=== PATIENT | female | born 1970 | race Caucasian/White ===

== ENCOUNTER 2017-08-16 21:41 | Emergency (ER) | payer BC ==
[~2017-08-16] VITALS: Ht 162.6 cm; Wt 84.2 kg
[2017-08-16 22:51] LABS: MCH 24.8 PG (29.0-34.0); MCHC 30.6 G/DL (30.0-36.0); MEAN PLAT.VOLUME 9.5 uM^3 (9.5-12.4); PLATELET COUNT 344 K/uL (156-360); RBC DIS.WIDTH-CV 16.6 % (11.8-14.6); RBC DIS.WIDTH-SD 48.7 % (39-53); WHITE BLOOD COUNT 8.4 K/uL (4.1-10.2)
[2017-08-16 23:02] LABS: CHLORIDE 110 mEq/L (99-109); POTASSIUM 3.5 mEq/L (3.7-5.4); SODIUM 141 mEq/L (136-147)
[2017-08-16 23:04] LABS: GLUCOSE 107 mg/dL (70-99)
[2017-08-16 23:05] LABS: ANION GAP 11 MEQ/L (2-14)
[2017-08-16 23:08] LABS: GFR ESTIMATE (CALCULATED) > 59 mL/min/
[2017-08-16 23:09] LABS: UREA NITROGEN (BUN) 9 mg/dL (9-23)
[2017-08-16 23:16] LABS: QUANTITATIVE HCG < 4.0 MIU/ML
[2017-08-16] MEDS ORDERED: KEPPRA500 MG PO (23:59)
[2017-08-17] VITALS: BP 147/102
== END 2017-08-16 23:58 | disposition home or self-care (01) ==
LOC: EME 21:41 → EDBD 21:41 → EME 23:58
PROVIDERS: Emergency Medicine
DX: G40.909 Epilepsy, unspecified, not intractable, without status epilepticus (principal); Z91.14 Patient's other noncompliance with medication regimen
CPT/HCPCS: 71010; 80048; 81003; 83605; 84702; 85027; 87040; 87086; 93005; 99281; 99284; J1885; J1953; J2060; J2250; J7050; J7120

== ENCOUNTER 2017-12-22 14:13 | Emergency (ER) | payer BC ==
[~2017-12-22] VITALS: Ht 162.6 cm; Wt 72.4 kg
[~2017-12-22 14:13] MED LIST: KEPPRA500 MG PO
[2017-12-22 14:53] LABS: CHLORIDE 106 mEq/L (99-109); POTASSIUM 3.9 mEq/L (3.7-5.4); SODIUM 141 mEq/L (136-147)
[2017-12-22 14:55] LABS: GLUCOSE 103 mg/dL (70-99)
[2017-12-22 14:59] LABS: CREATININE 0.7 mg/dL (0.6-1.3); GFR ESTIMATE (CALCULATED) > 59 mL/min/; UREA NITROGEN (BUN) 13 mg/dL (9-23)
[2017-12-22 16:55] VITALS: BP 144/88
== END 2017-12-22 17:14 | disposition home or self-care (01) ==
LOC: EME 14:13
PROVIDERS: Emergency Medicine
DX: G43.109 Migraine with aura, not intractable, without status migrainosus (principal); G40.909 Epilepsy, unspecified, not intractable, without status epilepticus; M79.7 Fibromyalgia; F32.9 Major depressive disorder, single episode, unspecified; G89.29 Other chronic pain; G54.9 Nerve root and plexus disorder, unspecified; G54.2 Cervical root disorders, not elsewhere classified; F17.200 Nicotine dependence, unspecified, uncomplicated
CPT/HCPCS: 80048; 80175 90; 99281; 99284; J1200; J2765; J7030

== ENCOUNTER 2018-01-16 22:37 | Emergency (ER) | payer BC ==
[~2018-01-16] VITALS: Ht 162.6 cm; Wt 76.4 kg
[2018-01-16 23:08] VITALS: BP 180/112
== END 2018-01-17 01:43 | disposition left against medical advice (07) ==
LOC: EME 22:37
DX: R51 Headache (principal); F17.200 Nicotine dependence, unspecified, uncomplicated
CPT/HCPCS: 70450; 81003

== ENCOUNTER 2018-02-01 20:38 | Observation (INO) | payer BC ==
[~2018-02-01] VITALS: Ht 162.6 cm; Wt 74.5 kg
[2018-02-01 21:40] LABS: BASOPHIL (%) 1.4 % (0-1); BASOPHIL COUNT 0.1 K/uL (0-0.1); EOSINOPHIL (%) 3.7 % (0-5); EOSINOPHIL COUNT 0.4 K/uL (0-0.3); HEMATOCRIT 32.1 % (36.0-46.0); IMMATURE GRANULOCYTE (%) 0.4 % (0.0-0.7); LYMPHOCYTE (%) 40.6 % (15-42); LYMPHOCYTE COUNT 4.2 K/uL (1.0-2.8); MCH 24.5 PG (29.0-34.0); MCHC 31.2 G/DL (30.0-36.0); MCV 78.7 FL (83-99); MONOCYTE (%) 6.5 % (3-12); MONOCYTE COUNT 0.7 K/uL (0-0.8); NEUTROPHIL (%) 47.4 % (45-76); NEUTROPHIL COUNT 4.9 K/uL (1.8-6.4); PLATELET COUNT 437 K/uL (156-360); RBC DIS.WIDTH-CV 14.4 % (11.8-14.6); RBC DIS.WIDTH-SD 41.5 % (39-53); RED BLOOD COUNT 4.08 M/uL (3.80-5.20); WHITE BLOOD COUNT 10.3 K/uL (4.1-10.2)
[2018-02-01 21:48] LABS: CHLORIDE 109 mEq/L (99-109); POTASSIUM 3.8 mEq/L (3.7-5.4); SODIUM 141 mEq/L (136-147)
[2018-02-01 21:50] LABS: GLUCOSE 107 mg/dL (70-99); TOTAL PROTEIN 6.3 g/dL (6.4-8.3)
[2018-02-01 21:52] LABS: TOTAL BILIRUBIN 0.1 mg/dL (0.0-1.0)
[2018-02-01 21:53] LABS: SERUM ETHYL ALCOHOL < 10 mg/dL
[2018-02-01 21:54] LABS: ALKALINE PHOSPHATASE 84 IU/L (3-129); CREATININE 0.7 mg/dL (0.6-1.3); GFR ESTIMATE (CALCULATED) > 59 mL/min/
[2018-02-01 21:55] LABS: AST (GOT) 22 IU/L (2-34); UREA NITROGEN (BUN) 10 mg/dL (9-23)
[2018-02-01 21:57] LABS: ALT (GPT) 22 IU/L (3-49); CREATINE KINASE 81 IU/L (1-294); TOTAL CK 81 IU/L (1-294)
[2018-02-01 22:03] LABS: CK-MB 0.9 ng/mL (0.0-4.9); CKMB RELATIVE INDEX 1.1 (0.0-3.9)
[2018-02-01] MEDS ORDERED: TRAMADOL HCL50 MG PO (23:36)
[2018-02-01] MEDS ORDERED: LAMOTRIGINE100 MG PO (23:36)
[2018-02-01] MEDS ORDERED: LAMICTAL100 MG PO (23:38)
[2018-02-01] MEDS ORDERED: PROAIR HFA8.5 GM IH (23:40)
[2018-02-01] MEDS ORDERED: ZYRTEC10 M3 PO (23:40)
[2018-02-01] MEDS ORDERED: ONE DAILY MULT1 EAC1 PO (23:40)
[2018-02-01] MEDS ORDERED: TIZANIDINE HCL4 MG PO (23:41)
[2018-02-01] MEDS ORDERED: VENLAFAXINE H37.5 M3 PO (23:42)
[2018-02-01] MEDS ORDERED: VENLAFAXINE HCL75 M3 PO (23:42)
[2018-02-01] MEDS ORDERED: DESYREL100 MG PO (23:43)
[2018-02-01] MEDS ORDERED: LEVETIRACETAM500 MG PO (23:43)
[2018-02-02 08:39] VITALS: BP 130/62
== END 2018-02-02 11:00 | disposition home or self-care (01) ==
LOC: EME → EDBD 20:38 → EME 20:38 → 4SOUTH 02-02 01:13 → EDOF 02-02 01:13 → ENRESERV 02-02 01:14 → 4SOUTH 02-02 02:11
PROVIDERS: Emergency Medicine
DX: G40.909 Epilepsy, unspecified, not intractable, without status epilepticus (principal); G43.909 Migraine, unspecified, not intractable, without status migrainosus; F31.81 Bipolar II disorder; G89.29 Other chronic pain; M54.2 Cervicalgia; Z82.49 Family history of ischemic heart disease and other diseases of the circulatory system; Z80.0 Family history of malignant neoplasm of digestive organs; F17.200 Nicotine dependence, unspecified, uncomplicated; Z88.6 Allergy status to analgesic agent; Z88.8 Allergy status to other drugs, medicaments and biological substances
CPT/HCPCS: 70450; 80053; 82550; 82553; 85025; 93005; 99202; 99281; 99285; G0378; G0480; J1630; J1644; J1953; J2250; J7030; J7050

== ENCOUNTER 2018-03-04 02:05 | Inpatient (IN) | payer BC ==
[~2018-03-04] VITALS: Ht 162.6 cm; Wt 72.5 kg
[~2018-03-04 02:05] MED LIST changes: +DESYREL100 MG PO; +LAMICTAL100 MG PO; +LAMOTRIGINE100 MG PO; +LEVETIRACETAM500 MG PO; +ONE DAILY MULT1 EAC1 PO; +PROAIR HFA8.5 GM IH; +TIZANIDINE HCL4 MG PO; +TRAMADOL HCL50 MG PO; +VENLAFAXINE H37.5 M3 PO; +VENLAFAXINE HCL75 M3 PO; +ZYRTEC10 M3 PO
[2018-03-04 02:30] LABS: HEMATOCRIT 30.7 % (36.0-46.0); HEMOGLOBIN 9.5 G/DL (11.9-15.5); MCH 23.8 PG (29.0-34.0); MCHC 30.9 G/DL (30.0-36.0); MCV 76.8 FL (83-99); PLATELET COUNT 335 K/uL (156-360); RBC DIS.WIDTH-CV 14.6 % (11.8-14.6); RBC DIS.WIDTH-SD 40.2 % (39-53); WHITE BLOOD COUNT 9.8 K/uL (4.1-10.2)
[2018-03-04 02:39] LABS: ALBUMIN 3.8 g/dL (3.2-4.8); CHLORIDE 107 mEq/L (99-109); POTASSIUM 3.8 mEq/L (3.7-5.4); SODIUM 137 mEq/L (136-147)
[2018-03-04 02:42] LABS: GLUCOSE 145 mg/dL (70-99)
[2018-03-04 02:43] LABS: TOTAL BILIRUBIN 0.1 mg/dL (0.0-1.0)
[2018-03-04 02:44] LABS: SERUM ETHYL ALCOHOL < 10 mg/dL
[2018-03-04 02:45] LABS: ALKALINE PHOSPHATASE 86 IU/L (3-129); CREATININE 0.7 mg/dL (0.6-1.3); GFR ESTIMATE (CALCULATED) > 59 mL/min/
[2018-03-04 02:46] LABS: UREA NITROGEN (BUN) 8 mg/dL (9-23)
[2018-03-04 02:47] LABS: AST (GOT) 15 IU/L (2-34)
[2018-03-04 02:48] LABS: ALT (GPT) 15 IU/L (3-49)
[2018-03-04 02:49] LABS: CREATINE KINASE 64 IU/L (1-294); LIPASE 31 U/L (1.0-51.0); TOTAL CK 64 IU/L (1-294)
[2018-03-04 02:57] LABS: CK-MB 0.9 ng/mL (0.0-4.9); CKMB RELATIVE INDEX 1.4 (0.0-3.9)
[2018-03-04 03:52] LABS: APPEARANCE CLEAR ((CLEAR)); BILIRUBIN NEGATIVE; BLOOD NEGATIVE; COLOR YELLOW ((YELLOW)); GLUCOSE (STRIP) NEGATIVE; KETONES NEGATIVE; LEUKOCYTES NEGATIVE; NITRITE NEGATIVE; PROTEIN (STRIP) NEGATIVE; SPECIFIC GRAVITY 1.009 (1.000-1.030); UCUL ADDED? NO; UROBILINOGEN 0.2 MG/DL (0.2-1.0)
[2018-03-04 04:04] LABS: AMPHETAMINE NEGATIVE (500 ng/mL); BARBITURATES NEGATIVE (200 ng/mL); BENZODIAZEPINES NEGATIVE (150 ng/mL); BUPRENORPHINE NEGATIVE (10 ng/mL); COCAINE NEGATIVE (150 ng/mL); METHADONE NEGATIVE (200 ng/mL); METHAMPHETAMINE NEGATIVE (500 ng/mL); OPIATES (MORPHINE) NEGATIVE (100 ng/mL); OXYCODONE NEGATIVE (100 ng/mL); PHENCYCLIDINE NEGATIVE (25 ng/mL); PROPOXYPHENE NEGATIVE (300 ng/mL); THC CANNABINOIDS NEGATIVE (50 ng/mL); TRICYCLIC ANTIDEPRESSANTS NEGATIVE (300 ng/mL)
[2018-03-04] MEDS ORDERED: LEVETIRACETAM500 MG PO (07:52)
[2018-03-04] MEDS ORDERED: TYLENOL REGULA325 MG PO (07:54)
[2018-03-04 09:17] LABS: HDL CHOLESTEROL 60 MG/DL (Desirable>=50); LDL CHOLESTEROL 85 mg/dL (Desirable<100); NON-HDL CHOLESTEROL 96 mg/dL (Desirable<160); TOTAL CHOLESTEROL 156 mg/dL (Desirable<200); TRIGLYCERIDES 54 MG/DL (Normal: <150)
[2018-03-04 13:09] LABS: HEMOGLOBIN A1c (GLYCOHEMOGLOB) 6.3 % (Below 5.7)
[2018-03-04 16:00] VITALS: BP 162/82
[2018-03-04 20:02] VITALS: BP 132/83
[2018-03-05 00:12] VITALS: BP 116/61
[2018-03-05 04:10] VITALS: BP 131/68
[2018-03-05 06:49] VITALS: BP 119/79
[2018-03-05 16:15] VITALS: BP 139/84
[2018-03-05 19:38] VITALS: BP 183/81
[2018-03-05 20:36] LABS: ALBUMIN 3.9 G/DL (3.2-4.8); ALKALINE PHOSPHATASE 78 IU/L (3-129); ALT (GPT) 14 IU/L (3-49); AST (GOT) 12 IU/L (2-34); CHLORIDE 107 MEQ/L (99-109); CREATINE KINASE 40 IU/L (1-294); CREATININE 0.7 MG/DL (0.6-1.3); GFR ESTIMATE (CALCULATED) > 59 mL/min/; MAGNESIUM 2.1 mg/dl (1.3-2.7); PHOSPHORUS 3.4 mg/dL (2.5-4.9); POTASSIUM 4.3 MEQ/L (3.7-5.4); SODIUM 138 MEQ/L (136-147); TOTAL BILIRUBIN 0.2 MG/DL (0.0-1.0); TOTAL PROTEIN 5.9 G/DL (6.4-8.3); UREA NITROGEN (BUN) 13 mg/dL (9-23)
[2018-03-05 20:37] LABS: GLUCOSE 100 mg/dL (70-99)
[2018-03-05 22:49] VITALS: BP 108/53
[2018-03-06 03:09] VITALS: BP 113/59
[2018-03-06 07:04] VITALS: BP 104/58
[2018-03-06] MEDS ORDERED: LAMOTRIGINE200 MG PO (09:17)
[2018-03-06] MEDS ORDERED: LEVETIRACETAM500 MG PO (09:17)
[2018-03-06] MEDS ORDERED: NICOTINE PATCH1 EAC2 TD (09:17)
[2018-03-06 11:04] VITALS: BP 128/79
[2018-03-06 13:50] VITALS: BP 158/86
[2018-03-06 14:04] LABS: HEMATOCRIT 34.9 % (36.0-46.0); HEMOGLOBIN 10.4 G/DL (11.9-15.5); MCHC 29.8 G/DL (30.0-36.0); MCV 77.2 FL (83-99); PLATELET COUNT 368 K/uL (156-360); RBC DIS.WIDTH-CV 14.7 % (11.8-14.6); RBC DIS.WIDTH-SD 40.8 % (39-53); RED BLOOD COUNT 4.52 M/uL (3.80-5.20); WHITE BLOOD COUNT 7.7 K/uL (4.1-10.2)
[2018-03-06 14:34] LABS: CHLORIDE 107 MEQ/L (99-109); CREATININE 0.6 MG/DL (0.6-1.3); GFR ESTIMATE (CALCULATED) > 59 mL/min/; GLUCOSE 81 mg/dL (70-99); POTASSIUM 4.1 MEQ/L (3.7-5.4); SODIUM 137 MEQ/L (136-147); UREA NITROGEN (BUN) 10 mg/dL (9-23)
[2018-03-06 15:10] VITALS: BP 158/74
[2018-03-06 20:12] VITALS: BP 133/81
[2018-03-07 01:11] VITALS: BP 109/56
[2018-03-07 07:20] VITALS: BP 110/66
== END 2018-03-07 12:40 | disposition home or self-care (01) | DRG 101 ==
LOC: EME → DELPENDDIS → EME 02:05 → EDBD 02:05 → 5EAST 07:08 → EDOF 07:08 → ENRESERV 07:14 → 5EAST 16:09 → ENPENDDIS 03-06 → 5EAST 03-07 12:40
PROVIDERS: Emergency Medicine; Family Medicine; Hospitalist; Physician Assistant
DX: G40.89 Other seizures (principal); G43.109 Migraine with aura, not intractable, without status migrainosus; G89.29 Other chronic pain; M79.7 Fibromyalgia; M47.812 Spondylosis without myelopathy or radiculopathy, cervical region; M54.9 Dorsalgia, unspecified; F17.200 Nicotine dependence, unspecified, uncomplicated; F31.81 Bipolar II disorder; F41.9 Anxiety disorder, unspecified
CPT/HCPCS: 70450; 70551; 72125; 80048; 80053; 80061; 80069; 80076; 80175 90; 81003; 82140; 82330; 82550; 82553; 82948; 83036; 83605; 83690; 83735; 85027; 93005; 93880; 95819; 99202; 99281; 99285; G0480; J1650; J2060; J7030

== ENCOUNTER 2018-03-19 00:01 | Emergency (ER) | payer BC ==
[~2018-03-19] VITALS: Ht 167.6 cm; Wt 73.0 kg
[~2018-03-19 00:01] MED LIST changes: +LAMOTRIGINE200 MG PO; +NICOTINE PATCH1 EAC2 TD; +TYLENOL REGULA325 MG PO
[2018-03-19 00:31] LABS: HEMATOCRIT 32.3 % (36.0-46.0); HEMOGLOBIN 9.9 G/DL (11.9-15.5); MCH 23.5 PG (29.0-34.0); MCHC 30.7 G/DL (30.0-36.0); MCV 76.5 FL (83-99); PLATELET COUNT 411 K/uL (156-360); RED BLOOD COUNT 4.22 M/uL (3.80-5.20); WHITE BLOOD COUNT 12.7 K/uL (4.1-10.2)
[2018-03-19 00:32] LABS: CHLORIDE 109 mEq/L (99-109); POTASSIUM 3.8 mEq/L (3.7-5.4); SODIUM 141 mEq/L (136-147)
[2018-03-19 00:34] LABS: GLUCOSE 136 mg/dL (70-99)
[2018-03-19 00:36] LABS: TOTAL BILIRUBIN 0.1 mg/dL (0.0-1.0)
[2018-03-19 00:37] LABS: ALKALINE PHOSPHATASE 90 IU/L (3-129); CREATININE 0.8 mg/dL (0.6-1.3); GFR ESTIMATE (CALCULATED) > 59 mL/min/
[2018-03-19 00:39] LABS: AST (GOT) 18 IU/L (2-34); UREA NITROGEN (BUN) 17 mg/dL (9-23)
[2018-03-19 00:40] LABS: ALT (GPT) 18 IU/L (3-49)
[2018-03-19 02:19] LABS: APPEARANCE CLEAR ((CLEAR)); BILIRUBIN NEGATIVE; BLOOD NEGATIVE; COLOR YELLOW ((YELLOW)); GLUCOSE (STRIP) NEGATIVE; KETONES NEGATIVE; LEUKOCYTES NEGATIVE; NITRITE NEGATIVE; PROTEIN (STRIP) NEGATIVE; SPECIFIC GRAVITY 1.015 (1.000-1.030); UCUL ADDED? NO; UROBILINOGEN 0.2 MG/DL (0.2-1.0)
[2018-03-19 03:05] VITALS: BP 128/77
== END 2018-03-19 03:35 | disposition home or self-care (01) ==
LOC: EME → EDBD 00:01 → EME 03:35
PROVIDERS: Emergency Medicine
DX: G40.909 Epilepsy, unspecified, not intractable, without status epilepticus (principal); J44.9 Chronic obstructive pulmonary disease, unspecified; M79.7 Fibromyalgia; M54.2 Cervicalgia; M54.5 Low back pain; G89.29 Other chronic pain; F17.200 Nicotine dependence, unspecified, uncomplicated; Z79.891 Long term (current) use of opiate analgesic; Z86.69 Personal history of other diseases of the nervous system and sense organs; Z88.6 Allergy status to analgesic agent
CPT/HCPCS: 80053; 81003; 82948; 85027; 99281; 99285; J1885; J2765; J7030

== ENCOUNTER 2018-03-21 23:10 | Inpatient (IN) | payer BC ==
[~2018-03-21] VITALS: Ht 160 cm; Wt 73.0 kg
[2018-03-21 23:54] LABS: HEMATOCRIT 34.2 % (36.0-46.0); HEMOGLOBIN 10.3 G/DL (11.9-15.5); MCHC 30.1 G/DL (30.0-36.0); MCV 76.3 FL (83-99); PLATELET COUNT 424 K/uL (156-360); RBC DIS.WIDTH-CV 15.1 % (11.8-14.6); RBC DIS.WIDTH-SD 41.3 % (39-53); RED BLOOD COUNT 4.48 M/uL (3.80-5.20); WHITE BLOOD COUNT 15.2 K/uL (4.1-10.2)
[2018-03-22 00:08] LABS: CHLORIDE 109 mEq/L (99-109); POTASSIUM 4.1 mEq/L (3.7-5.4); SODIUM 138 mEq/L (136-147)
[2018-03-22 00:14] LABS: CREATININE 0.7 mg/dL (0.6-1.3); GFR ESTIMATE (CALCULATED) > 59 mL/min/
[2018-03-22 00:15] LABS: UREA NITROGEN (BUN) 13 mg/dL (9-23)
[2018-03-22 00:20] LABS: GLUCOSE 97 mg/dL (70-99)
[2018-03-22 00:35] LABS: SERUM ETHYL ALCOHOL < 10 mg/dL
[2018-03-22 00:43] LABS: APPEARANCE CLEAR ((CLEAR)); BILIRUBIN NEGATIVE; BLOOD NEGATIVE; COLOR YELLOW ((YELLOW)); GLUCOSE (STRIP) NEGATIVE; KETONES NEGATIVE; LEUKOCYTES NEGATIVE; NITRITE NEGATIVE; PROTEIN (STRIP) NEGATIVE; SPECIFIC GRAVITY 1.012 (1.000-1.030); UCUL ADDED? NO; UROBILINOGEN 0.2 MG/DL (0.2-1.0)
[2018-03-22 00:44] LABS: QUANTITATIVE HCG < 4.0 MIU/ML
[2018-03-22 01:03] LABS: AMPHETAMINE NEGATIVE (500 ng/mL); BARBITURATES NEGATIVE (200 ng/mL); BENZODIAZEPINES NEGATIVE (150 ng/mL); BUPRENORPHINE NEGATIVE (10 ng/mL); COCAINE NEGATIVE (150 ng/mL); METHADONE NEGATIVE (200 ng/mL); METHAMPHETAMINE NEGATIVE (500 ng/mL); OPIATES (MORPHINE) NEGATIVE (100 ng/mL); OXYCODONE NEGATIVE (100 ng/mL); PHENCYCLIDINE NEGATIVE (25 ng/mL); PROPOXYPHENE NEGATIVE (300 ng/mL); THC CANNABINOIDS NEGATIVE (50 ng/mL); TRICYCLIC ANTIDEPRESSANTS NEGATIVE (300 ng/mL)
[2018-03-22 07:56] VITALS: BP 124/65
[2018-03-22 16:25] VITALS: BP 142/78
[2018-03-23 08:33] VITALS: BP 160/85
[2018-03-23 16:00] VITALS: BP 158/87
[2018-03-24 08:27] VITALS: BP 122/69
[2018-03-24 16:45] VITALS: BP 145/85
[2018-03-25 07:50] VITALS: BP 144/78
[2018-03-25 16:47] VITALS: BP 144/79
[2018-03-26 07:50] VITALS: BP 128/72
[2018-03-26] MEDS ORDERED: ARIPIPRAZOLE5 MG PO (09:03)
== END 2018-03-26 11:45 | disposition home or self-care (01) | DRG 885 ==
LOC: EME 23:10 → 1WEST 03-22 01:31 → EDOF 03-22 01:31 → ENRESERV 03-22 02:12 → 1WEST 03-22 02:49
PROVIDERS: Emergency Medicine
DX: F31.81 Bipolar II disorder (principal); F43.23 Adjustment disorder with mixed anxiety and depressed mood; F44.5 Conversion disorder with seizures or convulsions; R45.851 Suicidal ideations; I10 Essential (primary) hypertension; M79.7 Fibromyalgia; J43.9 Emphysema, unspecified; F17.200 Nicotine dependence, unspecified, uncomplicated; Z91.5 Personal history of self-harm
CPT/HCPCS: 71046; 80048; 80053; 81003; 82948; 84702; 85027; 90839; 94760; 97150 GO; 97165 GO; 99202; 99281; 99285; G0480; J1885; J2765; J7030; Q0177